=== PATIENT | male | born 1970 | race Caucasian/White ===

== ENCOUNTER 2020-08-05 00:40 | Emergency (ER) | payer BC ==
[~2020-08-05] VITALS: Ht 175.3 cm; Wt 93.0 kg
[2020-08-05 00:50] VITALS: BP_SYST 129
[2020-08-05] MEDS ORDERED: DIPHENHYDRAMINE INJ 50 MG/ML VIAL IVP ONE (01:15)
[2020-08-05] MEDS ORDERED: PROCHLORPERAZINE EDISYLATE 10 MG/2 ML VIAL IVP ONE (01:15)
[2020-08-05] MEDS ORDERED: NACL 0.9% 1,000 ML IV ONE (01:15)
[2020-08-05] MEDS ORDERED: DEXAMETHASONE SOD PHOSPHATE 10 MG/ML VIAL IVP ONE (01:15)
[2020-08-05] MEDS ORDERED: DEXAMETHASONE SOD PHOSPHATE 10 MG/ML VIAL ONE (01:25)
[2020-08-05] MEDS ORDERED: MORPHINE 4 MG/ML INJ. SYRINGE IVP ONE (02:15)
[2020-08-05] MEDS ORDERED: ONDANSETRON HCL 4 MG/2 ML VIAL IVP ONE (02:15)
[2020-08-05] MEDS ORDERED: MORPHINE 4 MG/ML INJ. SYRINGE ONE (02:17)
[2020-08-05] MEDS ORDERED: ONDANSETRON HCL 4 MG/2 ML VIAL ONE (02:17)
[2020-08-05 02:25] VITALS: BP_SYST 118
[2020-08-05 02:31] LABS: EOSINOPHILS # (AUTO) 0.1 K/uL (0.0-0.4); EOSINOPHILS % (AUTO) 2.4 % (0.0-4.0); HEMATOCRIT 42.3 % (36-54); HEMOGLOBIN 14.6 g/dL (14.0-18.0); LYMPHOCYTES # (AUTO) 1.4 K/uL (1.0-5.5); LYMPHOCYTES % (AUTO) 30.9 % (20.5-51.5); MEAN CORPUSCULAR HEMOGLOBIN 32 pg (27-31); MEAN CORPUSCULAR HGB CONC 35 % (32-36); MEAN CORPUSCULAR VOLUME 92 fL (79.0-98.0); MONOCYTES # (AUTO) 0.6 K/uL (0.0-1.0); MONOCYTES % (AUTO) 14.1 % (1.7-9.3); NEUTROPHILS # (AUTO) 2.3 K/uL (1.8-7.7); NEUTROPHILS % (AUTO) 51.6 % (40.0-70.0); PLATELET COUNT (AUTO) 156 K/uL (130-430); RED BLOOD CELL COUNT(AUTO) 4.58 MIL/uL (4.2-6.2); RED CELL DISTRIBUTION WIDTH 12.2 % (9.0-15.0); WHITE BLOOD COUNT (AUTO) 4.5 K/uL (4.8-10.8)
[2020-08-05 02:34] LABS: CALCIUM 8.2 mg/dL (8.4-11.0); CREATININE 0.95 mg/dL (0.55-1.30)
[2020-08-05 02:46] LABS: ALBUMIN 3.8 g/dL (3.4-4.8); TOTAL BILIRUBIN 0.5 mg/dL (0.0-1.0)
[2020-08-05] MEDS ORDERED: ACYCLOVIR 400 MG TABLET PO ONE (03:00)
[2020-08-05] MEDS ORDERED: TETRACAINE HCL/PF 0.5% OPHTHALMIC DROPS 4 ML OP ONE ×2 (03:03→03:15)
[2020-08-05] MEDS ORDERED: FLUORESCEIN SODIUM 1 MG OPHTHALMIC STRIP OP ONE (03:04)
[2020-08-05] MEDS ORDERED: HYDROcodone/ACETAMIN 5-325 MG TAB (NORCO/ VICODIN) PO ONE (03:15)
[2020-08-05] MEDS ORDERED: HYDROcodone/ACETAMIN 5-325 MG TAB (NORCO/ VICODIN) ONE (03:17)
== END 2020-08-05 03:29 | disposition home or self-care (01) ==
LOC: SED 00:40
DX: B02.9 Zoster without complications (principal); R51.9 Headache, unspecified
CPT/HCPCS: 36415; 70450; 76376; 80053; 85025; 96361; 96374; 96375; 99284; J0780; J1100; J1200; J2270; J2405; J7030